=== PATIENT | male | born 1990 | race Hispanic/Latino ===

== ENCOUNTER 2021-05-19 20:35 | Emergency (ER) | payer BC ==
[~2021-05-19] VITALS: Ht 182.9 cm; Wt 104.3 kg
[2021-05-19 22:05] VITALS: BP 169/99
== END 2021-05-19 22:05 | disposition home or self-care (01) ==
LOC: FSED 21:05
DX: R00.2 Palpitations (principal); F41.9 Anxiety disorder, unspecified
CPT/HCPCS: 80053; 84484; 85025; 93005; 99282